=== PATIENT | female | born 1935 | race Caucasian/White ===

== ENCOUNTER 2017-07-11 08:21 | Emergency (ER) | payer MEDICARE ==
[2017-07-11 08:52] VITALS: BP 152/65
[2017-07-11] MEDS ORDERED: predniSONE TAB* 20 MG PO ONE (09:28)
--- NOTE | 2017-07-11 09:34 | UC ---
Skin Complaint HPI - HPI Summary HPI Summary: 81 yo female 3 days s/p wasp sting to LMF intense itching swollen mild pain - History of Current Complaint Chief Complaint: UCSkin Time Seen by Provider: 07/11/17 09:05 Stated Complaint: LEFT HAND-BEE STING Hx Obtained From: Patient Hx Last Menstrual Period: n/a Onset/Duration: Sudden Onset, Lasting Days Timing: Constant Onset Severity: Moderate Current Severity: Moderate Pain Intensity: 1 Pain Scale Used: 0-10 Numeric Location: Discrete Character: Swelling, Pruritus, Redness Associated Signs & Symptoms: Positive: Tenderness Related History: Insect Bite/Sting - Allergy/Home Medications Allergies/Adverse Reactions: Allergies Allergy/AdvReac Type Severity Reaction Status Date / Time No Known Allergies Allergy Verified 07/11/17 08:43 Review of Systems Constitutional: Negative Skin: Negative Eyes: Negative ENT: Negative Respiratory: Negative Cardiovascular: Negative Gastrointestinal: Negative Genitourinary: Negative Motor: Negative Neurovascular: Negative Musculoskeletal: Edema Neurological: Negative Psychological: Negative All Other Systems Reviewed And Are Negative: Yes PMH/Surg Hx/FS Hx/Imm Hx Previously Healthy: Yes Cardiovascular History: Hypertension Respiratory History: Asthma - Surgical History Surgical History: Yes Surgery Procedure, Year, and Place: left hip replaced 10/28/15 - Family History Known Family History: Positive: None Negative: Cardiac Disease, Hypertension, Diabetes - Social History Alcohol Use: Occasionally Substance Use Type: None Smoking Status (MU): Former Smoker Type: Cigarettes When Did the Patient Quit Smoking/Using Tobacco: 1990 - Immunization History Most Recent Influenza Vaccination: 2014 Physical Exam Triage Information Reviewed: Yes Appearance: Well-Appearing, No Pain Distress, Well-Nourished Vital Signs: Initial Vital Signs Temp 97.1 F 07/11/17 08:47 Pulse 82 07/11/17 08:47 Resp 16 07/11/17 08:47 BP 152/65 07/11/17 08:47 Pulse Ox 96 07/11/17 08:47 Vital Signs Reviewed: Yes Eyes: Positive: Conjunctiva Clear ENT: Positive: Hearing grossly normal. Negative: Nasal congestion, Nasal drainage, Trismus, Muffled/hoarse voice Neck: Positive: Supple Respiratory: Positive: Lungs clear, Normal breath sounds, No respiratory distress, No accessory muscle use Cardiovascular: Positive: RRR, No Murmur Neurological: Positive: Alert Psychological Exam: Normal Skin Exam: Other - see image Course/Dx - Diagnoses Provider Diagnoses: local reaction to insect sting Discharge - Discharge Plan Condition: Stable Disposition: HOME Prescriptions: Fexofenadine (NF) [Apoorva (NF)] 60 mg PO BID #10 tab Prednisone [Deltasone] 40 mg PO DAILY #4 tab Patient Education Materials: Insect Bite or Sting (ED) Referrals: Andrea Phoenix MD [Primary Care Provider] - Images Hands: 1 - red/swollen
== END 2017-07-11 09:36 | disposition home or self-care (01) ==
LOC: UCCORT 08:21
DX: T63.441A Toxic effect of venom of bees, accidental (unintentional), initial encounter (principal); Y92.9 Unspecified place or not applicable; I10 Essential (primary) hypertension; J45.909 Unspecified asthma, uncomplicated; Z96.642 Presence of left artificial hip joint; Z87.891 Personal history of nicotine dependence
CPT/HCPCS: 99212; G0463; J7512